=== PATIENT | male | born 1950 | race Caucasian/White ===

== ENCOUNTER 2019-01-31 01:14 | Emergency (ER) | payer MEDICARE, BC ==
[~2019-01-31] VITALS: Ht 180.3 cm; Wt 99.8 kg
[2019-01-31 01:21] VITALS: BP 150/102
== END 2019-01-31 02:05 | disposition home or self-care (01) ==
LOC: ER 01:20
DX: I10 Essential (primary) hypertension (principal); N40.0 Benign prostatic hyperplasia without lower urinary tract symptoms; Z85.46 Personal history of malignant neoplasm of prostate; Z90.89 Acquired absence of other organs; Z60.2 Problems related to living alone
CPT/HCPCS: 99281; A4606; Z7502